=== PATIENT | female | born 1950 | race Caucasian/White ===

== ENCOUNTER 2019-04-17 11:07 | Emergency (ER) | payer MEDICARE, BC ==
[~2019-04-17] VITALS: Ht 167.6 cm; Wt 57.7 kg
[2019-04-17] MEDS ORDERED: BENA25CA4 PO (11:31)
[2019-04-17] MEDS ORDERED: CLAR10CA3 PO (11:31)
[2019-04-17] MEDS ORDERED: MULTCAP PO (11:31)
[2019-04-17] MEDS ORDERED: TRIAMCINOLONE ACETONIDE SUSP 40 MG/ML VIAL (J3301) IM ONE (12:00)
[2019-04-17 12:30] VITALS: BP 150/85
== END 2019-04-17 12:33 | disposition home or self-care (01) ==
LOC: M ED 11:07
DX: L25.9 Unspecified contact dermatitis, unspecified cause (principal); R01.1 Cardiac murmur, unspecified; M19.90 Unspecified osteoarthritis, unspecified site; Z79.899 Other long term (current) drug therapy; Z88.0 Allergy status to penicillin; Z88.1 Allergy status to other antibiotic agents; Z91.030 Bee allergy status
CPT/HCPCS: 96372; 99283; J3301